=== PATIENT | female | born 1985 | race Caucasian/White ===

== ENCOUNTER 2016-11-06 18:42 | Emergency (ER) | payer MEDICAID, OTHER ==
[~2016-11-06] VITALS: Ht 157.5 cm; Wt 75.3 kg
[2016-11-06] VITALS (8 sets, daily range): BP systolic 108–128; BP diastolic 64–86; PULSE 75–84; RESP 16–18; TEMP 98.1; O2SAT 99–100
[~2016-11-06 18:42] MED LIST: ADDE20XR PO; ALPR.5 PO; LEXA20TA PO; LURA80 PO
--- NOTE | 2016-11-06 19:20 | PD ---
HPI Chief Complaint: Chest Pain Time Seen by Provider: 19:02 Travel History International Travel<30 days: No Contact w/Intl Traveler<30days: No Traveled to known affect area: No History of Present Illness HPI The patient is a 31-year-old female with no known history of heart disease who complains of a tightness in her mid sternal area beginning around 11:30 PM last night. She states she has nausea, diaphoresis and shortness of breath. She states she has radiation up her jaw and neck. She does smoke one half pack a day. She does have a history of ADHD, anxiety and depression. She has never had a stress test before. She is not , the patient has had a hysterectomy. PFSH Past Medical History Bipolar Disorder: Yes Anxiety: Yes Depression: Yes Cancer: No Cardiovascular Problems: No Diminished Hearing: No Endocrine: No Genitourinary: No Immune Disorder: No Musculoskeletal: No Neurologic: No Psychiatric: Yes Reproductive: No Respiratory: No Immunizations Current: Yes Tetanus Vaccination: < 5 Years Influenza Vaccination: No ?: Not : 4 Para: 5 Tubal Ligation: Yes (TUBES REMOVED PER PT) Past Surgical History Section: Yes (X 1) Oral Surgery: Yes (WISDOM TEETH) Other Surgery: Yes (TUBAL LIGATION AND CESARIAN SECTION) Social History Alcohol Use: Yes (OCCASIONAL) Tobacco Use: Yes (1/2 pk) Substance Use: No Allergies-Medications (Allergen,Severity, Reaction): Coded Allergies: Benadryl (Verified Allergy, Unknown, hives, 11/06/16) Reported Meds & Prescriptions Reported Meds & Active Scripts Active No Active Prescriptions or Reported Medications Review of Systems Except as stated in HPI: all other systems reviewed are Neg Physical Exam Narrative GENERAL: The patient is alert, oriented 3, anxious in minimal apparent distress with her chest discomfort. Her vital signs are normal and oximetry is 100% with respirations of 18. SKIN: Focused skin assessment warm/dry. HEAD: Atraumatic. Normocephalic. EYES: Pupils equal and round. No scleral icterus. No injection or drainage. ENT: No nasal bleeding or discharge. Mucous membranes pink and moist. NECK: Trachea midline. No JVD. CARDIOVASCULAR: Regular rate and rhythm. No murmur appreciated. RESPIRATORY: No accessory muscle use. A few widely scattered wheezes are heard consistent with her tobacco abuse. Breath sounds equal bilaterally. GASTROINTESTINAL: Abdomen soft, non-tender, nondistended. Hepatic and splenic margins not palpable. MUSCULOSKELETAL: No obvious deformities. No clubbing. No cyanosis. No edema. NEUROLOGICAL: Awake and alert. No obvious cranial nerve deficits. Motor grossly within normal limits. Normal speech. PSYCHIATRIC: Appropriate mood and affect; insight and judgment normal. Data Data Last Documented VS Vital Signs Date Time Temp Pulse Resp B/P Pulse Ox O2 Delivery O2 Flow Rate FiO2 11/06/16 20:34 79 17 108/66 100 Room Air 11/06/16 19:01 98.1 Orders Electrocardiogram (11/06/16 19:24) Complete Blood Count With Diff (11/06/16 19:24) Comprehensive Metabolic Panel (11/06/16 19:24) Magnesium (Mg) (11/06/16 19:24) Prothrombin Time / Inr (Pt) (11/06/16 19:24) Act Partial Throm Time (Ptt) (11/06/16 19:24) Troponin I (11/06/16 19:24) Ecg Monitoring (11/06/16 19:24) Iv Access Insert/Monitor (11/06/16 19:24) Oximetry (11/06/16 19:24) Oxygen Administration (11/06/16 19:24) Aspirin (Aspirin) (11/06/16 19:30) Sodium Chloride 0.9% Flush (Ns Flush) (11/06/16 19:30) Nitroglycerin Sl (Nitrostat Sl) (11/06/16 19:30) Chest, Pa & Lat (11/06/16 19:24) Urinalysis - C+S If Indicated (11/06/16 19:24) Ed Urine Pregnancytest Poc (11/06/16 19:24) Electrocardiogram (11/06/16 18:44) Acetaminophen (Tylenol) (11/06/16 20:00) Labs Laboratory Tests Test 11/06/16 11/06/16 18:09 20:10 White Blood Count 16.1 TH/MM3 Red Blood Count 5.66 MIL/MM3 Hemoglobin 16.5 GM/DL Hematocrit 49.7 % Mean Corpuscular Volume 87.7 FL Mean Corpuscular Hemoglobin 29.1 PG Mean Corpuscular Hemoglobin 33.2 % Concent Red Cell Distribution Width 13.0 % Platelet Count 296 TH/MM3 Mean Platelet Volume 9.2 FL Neutrophils (%) (Auto) 68.4 % Lymphocytes (%) (Auto) 27.2 % Monocytes (%) (Auto) 3.1 % Eosinophils (%) (Auto) 0.5 % Basophils (%) (Auto) 0.8 % Neutrophils # (Auto) 11.0 TH/MM3 Lymphocytes # (Auto) 4.4 TH/MM3 Monocytes # (Auto) 0.5 TH/MM3 Eosinophils # (Auto) 0.1 TH/MM3 Basophils # (Auto) 0.1 TH/MM3 CBC Comment DIFF FINAL Differential Comment Prothrombin Time 10.1 SEC Prothromb Time International 0.9 RATIO Ratio Activated Partial 29.6 SEC Thromboplast Time Sodium Level 138 MEQ/L Potassium Level 3.7 MEQ/L Chloride Level 100 MEQ/L Carbon Dioxide Level 27.1 MEQ/L Anion Gap 11 MEQ/L Blood Urea Nitrogen 9 MG/DL Creatinine 0.86 MG/DL Estimat Glomerular Filtration 76 ML/MIN Rate Random Glucose 84 MG/DL Calcium Level 9.8 MG/DL Magnesium Level 2.4 MG/DL Total Bilirubin 0.3 MG/DL Aspartate Amino Transf 21 U/L (AST/SGOT) Alanine Aminotransferase 45 U/L (ALT/SGPT) Alkaline Phosphatase 52 U/L Troponin I LESS THAN 0.02 NG/ML Total Protein 8.7 GM/DL Albumin 4.7 GM/DL Urine Color YELLOW Urine Turbidity HAZY Urine pH 6.5 Urine Specific [place] 1.015 Urine Protein NEG mg/dL Urine Glucose (UA) NEG mg/dL Urine Ketones NEG mg/dL Urine Occult Blood NEG Urine Nitrite NEG Urine Bilirubin NEG Urine Leukocyte Esterase NEG Urine WBC 0-2 /hpf Urine Squamous Epithelial > 8 /hpf Cells Microscopic Urinalysis Comment CULT NOT INDICATED MDM Medical Decision Making Medical Screen Exam Complete: Yes Emergency Medical Condition: Yes Medical Record Reviewed: Yes Interpretation(s) The CBC shows a white count of 16,100 with a hemoglobin of 16.5 and hematocrit of 49.7. The rest of the CBC is unremarkable. The coagulation profile is normal. EKG is normal with normal sinus rhythm rate of 79. Urinalysis is normal and culture is not indicated. The complete metabolic profile shows a total protein of 8.7 and a GFR of 76 but is otherwise normal. The patient was also concerned about a wisdom tooth which is had pain on the left for about a week. Differential Diagnosis Chest pain etiology undetermined, acute coronary syndrome, esophageal pain, chest wall pain, pleuritic pain, gastrointestinal pain, electrolyte disorder, urinary tract infection, anemia, dental infection Narrative Course We strongly recommended staying and having a stress test done. She declined, she did not want to stay here. She does have a dental infection next to tooth # 17, the wisdom tooth. Diagnosis Primary Impression: Chest pain of unknown etiology Additional Impression: Dental infection Additional Instructions: As we discussed, we were hoping you would do a stress test. Follow-up with your primary care physician. You are given all the laboratory results. Also, the amoxicillin is one tablet 3 times daily for 10 days. It is free at [facility]. Med/Other Pt SpecificInfo: Prescription(s) given Scripts Amoxicillin 500 Mg [id number] Mg PO TID 10 Days Ref 0 Prov:Jarett Colindres MD 11/06/16 Disposition: 01 DISCHARGE HOME Condition: Stable Jarett Colindres MD November 06, 2016 19:20
[2016-11-06] MEDS ORDERED: ASPIRIN 325 MG TAB PO ONE (19:30)
[2016-11-06] MEDS ORDERED: SODIUM CHLORIDE 0.9% FLUSH 10 ML FLUSH IVF PRN (19:30)
[2016-11-06] MEDS: NITROGLYCERIN 0.4 MG SL 25 TABS/BTL SL SCH ×3 (19:36→19:47)
[2016-11-06 19:49] LABS: BASOPHIL # 0.1 TH/MM3 (0-0.2); BASOPHIL % 0.8 % (0.0-2.0); EOSINOPHIL # 0.1 TH/MM3 (0-0.4); EOSINOPHIL % 0.5 % (0.0-4.0); HEMATOCRIT 49.7 % (35.0-46.0); LYMPH % 27.2 % (9.0-44.0); LYMPHOCYTE # 4.4 TH/MM3 (1.0-4.8); MEAN CELL VOLUME 87.7 FL (80.0-100.0); MEAN CORPUSCULAR HEMOGLOBIN 29.1 PG (27.0-34.0); MEAN CORPUSCULAR HGB CONC 33.2 % (32.0-36.0); MONO % 3.1 % (0.0-8.0); NEUT % 68.4 % (16.0-70.0); PLATELET COUNT 296 TH/MM3 (150-450); RED BLOOD COUNT 5.66 MIL/MM3 (4.00-5.30); WHITE BLOOD COUNT 16.1 TH/MM3 (4.0-11.0)
[2016-11-06] MEDS ORDERED: ACETAMINOPHEN 325 MG TAB PO ONE (20:00)
[2016-11-06 20:06] LABS: HEMO FLAGS DIFF FINAL
[2016-11-06 20:19] LABS: BLOOD, URINE NEG (NEG); GLUCOSE,URINE NEG (NEG); KETONE, URINE NEG (NEG); NITRITE,URINE NEG (NEG); PH, URINE 6.5 (5.0-8.5)
--- NOTE | 2016-11-06 20:21 | RADHPO ---
EXAM DATE/TIME: 11/06/2016 20:00 [facility] COMPARISON: No previous studies available for comparison. INDICATIONS : Chest tightness. Numbess and tingling radiating down arms and legs. MEDICAL HISTORY : None. SURGICAL HISTORY : None. ENCOUNTER: Initial ACUITY: 1 day PAIN SCORE: 1/10 LOCATION: Bilateral chest FINDINGS: PA and lateral views of the chest demonstrate the lungs to be symmetrically aerated without evidence of mass, infiltrate or effusion. The cardiomediastinal contours are unremarkable. Osseous structure s are intact. CONCLUSION: No acute disease. Cornell Stapleton MD on November 06, 2016 at 20:19 Board Certified Radiologist. This report was verified electronically.
[2016-11-06 20:28] LABS: CHLORIDE 100 MEQ/L (98-107); POTASSIUM 3.7 MEQ/L (3.5-5.1); SODIUM (NA) 138 MEQ/L (136-145)
[2016-11-06 20:31] LABS: ANION GAP 11 MEQ/L (5-15); BICARBONATE 27.1 MEQ/L (21.0-32.0)
[2016-11-06 20:32] LABS: BLOOD UREA NITROGEN 9 MG/DL (7-18); MAGNESIUM 2.4 MG/DL (1.5-2.5)
[2016-11-06 20:33] LABS: APTT (PATIENT) 29.6 SEC (24.3-30.1); INTERNATIONAL NORMALIZED RATIO 0.9 RATIO; PROTHROMBIN TIME - PATIENT 10.1 SEC (9.8-11.6)
[2016-11-06 20:34] LABS: ALT (GPT) 45 U/L (10-53)
[2016-11-06 20:35] LABS: AST (GOT) 21 U/L (15-37); GLOMERULAR FILTRATION RATE 76 ML/MIN (>89)
[2016-11-06 20:36] LABS: TOTAL BILIRUBIN ADULT 0.3 MG/DL (0.2-1.0)
[2016-11-06 20:36] LABS: COMMENT (UR) CULT NOT INDICATED; CULTURE IF INDICATED CULT NOT INDICATED; SQUAMOUS EPITHELIAL CELL URINE > 8 /hpf (0-5); URINE COLOR YELLOW (YELLW/STRAW); WBC, URINE 0-2 /hpf (0-5)
[2016-11-06 20:37] LABS: ALKALINE PHOSPHATASE 52 U/L (45-117)
[2016-11-06] MEDS ORDERED: AMOX500T PO (21:03)
[2016-11-06] MEDS ORDERED: AMOXICILLIN 875 MG TAB PO ONE (21:15)
--- NOTE | 2016-11-07 05:48 | EKG ---
Date Performed: 11/06/2016 Time Performed: 18:44:44 PTAGE: 31 years EKG: Sinus rhythm Normal ECG PREVIOUS TRACING : 03/11/2013 22.06 Compared to prior tracing no significant change DOCTOR: Meagan Zurita Interpretating Date/Time 11/07/2016 05:47:42
== END 2016-11-06 21:34 | disposition home or self-care (01) ==
LOC: PHED 18:42
DX: R07.9 Chest pain, unspecified (principal); K04.7 Periapical abscess without sinus; R11.0 Nausea; R61 Generalized hyperhidrosis; R06.02 Shortness of breath; F17.210 Nicotine dependence, cigarettes, uncomplicated
CPT/HCPCS: 71020; 80053; 81001; 83735; 84484; 84703; 85025; 85610; 85730; 93005

== ENCOUNTER 2016-11-14 17:26 | Emergency (ER) | payer MEDICAID, OTHER ==
[~2016-11-14] VITALS: Ht 157.5 cm; Wt 76.5 kg
[~2016-11-14 17:26] MED LIST changes: -ADDE20XR PO; -ALPR.5 PO; +AMOX500T PO; -LEXA20TA PO; -LURA80 PO
[2016-11-14 17:35] VITALS: BP 135/93; PULSE 81; RESP 16; TEMP 98.8; O2SAT 100
[2016-11-14] MEDS ORDERED: TRAM50TA PO (18:13)
--- NOTE | 2016-11-14 18:14 | RADHPO ---
EXAM DATE/TIME: 11/14/2016 17:57 [facility] COMPARISON: No previous studies available for comparison. INDICATIONS : Left thumb pain after patient bent finger backwards today MEDICAL HISTORY : None. SURGICAL HISTORY : None. ENCOUNTER: Initial ACUITY: 1 day PAIN SCORE: 7/10 LOCATION: Left 1st digit FINDINGS: Three view examination of the left hand demonstrates no soft tissue swelling, dislocation, or fractur e. The carpal bones appear intact. The interphalangeal and metacarpophalangeal joints are intact. Bony mineralization is normal. CONCLUSION: 1. There is no evidence of acute fracture. Nolan Morel MD on November 14, 2016 at 18:12 Board Certified Radiologist. This report was verified electronically.
--- NOTE | 2016-11-14 18:15 | PD ---
HPI Chief Complaint: Injury Time Seen by Provider: 17:50 Travel History International Travel<30 days: No Contact w/Intl Traveler<30days: No Traveled to known affect area: No History of Present Illness HPI 31-year-old female presents to the emergency room for evaluation of left thumb pain after injuring it just prior to arrival. Patient was trying to break up a fight between 2 large dogs when her left thumb was somehow bent all the way backwards. She had immediate pain localized to the ulnar side. Pain is extreme and worse with any range of motion of the thumb. She has not taken anything for pain. Denies paresthesias. PFSH Past Medical History Bipolar Disorder: Yes Anxiety: Yes Depression: Yes Cancer: No Cardiovascular Problems: No Diminished Hearing: No Endocrine: No Genitourinary: No Immune Disorder: No Musculoskeletal: No Neurologic: No Psychiatric: Yes Reproductive: No Respiratory: No Immunizations Current: Yes Tetanus Vaccination: Unknown Influenza Vaccination: No ?: Unknown LMP: LAST WEEK : 4 Para: 5 Tubal Ligation: Yes (TUBES REMOVED PER PT) Past Surgical History Section: Yes (X 1) Oral Surgery: Yes (WISDOM TEETH) Other Surgery: Yes (TUBAL LIGATION AND CESARIAN SECTION) Social History Alcohol Use: Yes (OCCASIONAL) Tobacco Use: Yes (1/2 pk) Substance Use: No Allergies-Medications (Allergen,Severity, Reaction): Coded Allergies: Benadryl (Verified Allergy, Unknown, hives, 11/14/16) Reported Meds & Prescriptions Reported Meds & Active Scripts Active Tramadol (Tramadol HCl) 50 Mg Tab 50 Mg PO Q8H PRN Amoxicillin 500 Mg Tab 500 Mg PO TID 10 Days Review of Systems Except as stated in HPI: all other systems reviewed are Neg Physical Exam Narrative GENERAL: Well-nourished, well-developed female in no acute distress. Afebrile. Ambulatory. SKIN: Focused skin assessment warm/dry. No erythema or ecchymosis. HEAD: Normocephalic. EYES: No scleral icterus. No injection or drainage. NECK: Supple, trachea midline. No JVD or lymphadenopathy. CARDIOVASCULAR: Regular rate and rhythm without murmurs, gallops, or rubs. RESPIRATORY: Breath sounds equal bilaterally. No accessory muscle use. EXTREMITY: Left thumb extremely tender to palpation especially over the ulnar aspect of the MCP. No obvious edema. Limited range of motion secondary to pain. Less than 2 second capillary refill distally. Data Data Last Documented VS Vital Signs Date Time Temp Pulse Resp B/P Pulse Ox O2 Delivery O2 Flow Rate FiO2 11/14/16 17:35 98.8 81 16 135/93 100 Orders Hand, Complete ([id number]) (11/14/16 ) Splint Or Brace Apply/Monitor (11/14/16 18:45) MDM Medical Decision Making Medical Screen Exam Complete: Yes Emergency Medical Condition: Yes Medical Record Reviewed: Yes Differential Diagnosis Gamekeeper's thumb versus fracture versus dislocation Narrative Course 31-year-old female presents to the emergency room for evaluation of left thumb pain after hyperextension injury prior to arrival. Patient states her thumb was bent all the way back. There is no edema, erythema, or ecchymosis. Thumb is extremely tender to palpation especially on the ulnar side. X-ray is negative. This is gamekeeper's thumb. Patient placed in thumb spica splint. Discharged with prescription for terminal. Told to follow up with the hand surgeon or return to the emergency room for worsening symptoms. She understands and agrees to plan. Diagnosis Primary Impression: Gamekeeper's thumb of left hand Qualified Code: S53.32XA - Gamekeeper's thumb of left hand, initial encounter Referrals: Hand Surgeon Patient Instructions: General Instructions, Skier's Thumb (ED) Additional Instructions: Rest and drink plenty of fluids. Take tramadol as directed, as needed for pain. Do not drink alcohol or drive while taking this medication. Take ibuprofen with food as directed, as needed for pain. Keep finger splinted. Elevate and apply ice to the affected area for 20 minutes at a time, as needed for pain and swelling. Follow-up with a hand surgeon. Return to the emergency room for worsening symptoms. Med/Other Pt SpecificInfo: Prescription(s) given Scripts Tramadol 50 Mg Tab50 Mg PO Q8H PRN (PAIN) #12 TAB Ref 0 Prov:Alfredo Esqueda MD 11/14/16 Disposition: 01 DISCHARGE HOME Condition: Stable Steffi Pulido November 14, 2016 18:15
[2016-11-14] MEDS ORDERED: LEXA20TA PO (18:56)
[2016-11-14] MEDS ORDERED: ALPR.5 PO (18:56)
[2016-11-14] MEDS ORDERED: LURA80 PO (18:56)
[2016-11-14] MEDS ORDERED: HYDR-3533 PO (18:59)
== END 2016-11-14 19:09 | disposition home or self-care (01) ==
LOC: PHEFT 17:26
DX: S63.642A Sprain of metacarpophalangeal joint of left thumb, initial encounter (principal); X50.1XXA Overexertion from prolonged static or awkward postures, initial encounter; F17.210 Nicotine dependence, cigarettes, uncomplicated
CPT/HCPCS: 73130; 99283